=== PATIENT | female | born 1955 | race Caucasian/White ===

== ENCOUNTER 2017-02-28 10:37 | Emergency (ER) | payer OTHER | END 2017-02-28 13:37 | disposition home or self-care (01) | LOC: ER1 10:37 | DX: S70.02XA Contusion of left hip, initial encounter (principal); M54.32 Sciatica, left side; Z85.3 Personal history of malignant neoplasm of breast; W01.0XXA Fall on same level from slipping, tripping and stumbling without subsequent striking against object, initial encounter; Y92.69 Other specified industrial and construction area as the place of occurrence of the external cause; Y99.0 Civilian activity done for income or pay | CPT/HCPCS: 73502; 99283 ==